=== PATIENT | male | born 1940 | race African-American/Black ===

== ENCOUNTER → 2016-08-22 | Outpatient (CLI) | payer MEDICARE ==
[2016-08-22 14:20] LABS: ABSOLUTE EOSINOPHILS # (AUTO) 0.2 10^3/uL (0.0-0.6); ABSOLUTE LYMPHOCYTES (AUTO) 1.7 10^3/uL (0.5-4.7); ABSOLUTE MONOCYTES (AUTO) 0.4 10^3/uL (0.1-1.4); ABSOLUTE NEUT (AUTO) 4.2 10^3/uL (1.7-8.2); BASOPHILS % (AUTO) 0.7 % (0-2); EOSINOPHILS % (AUTO) 3.3 % (0-6); HEMATOCRIT 38.1 % (37.9-51.0); HEMOGLOBIN 12.8 g/dL (13.5-17.0); HGB HCT DIFFERENCE 0.3; LYMPHOCYTES % (AUTO) 25.9 % (13-45); MEAN CORPUSCULAR HEMOGLOBIN 27.8 pg (27.0-33.4); MEAN CORPUSCULAR HGB CONC 33.7 g/dL (32.0-36.0); MEAN CORPUSCULAR VOLUME 83 fl (80-97); MONOCYTES % (AUTO) 5.7 % (3-13); RED BLOOD COUNT 4.61 10^6/uL (4.35-5.55); RED CELL DISTRIBUTION WIDTH 13.9 % (11.5-14.0); SEGMENTED NEUTROPHILS % (AUTO) 64.4 % (42-78); WHITE BLOOD COUNT 6.5 10^3/uL (4.0-10.5)
== END ==
LOC: OD 13:01
PROVIDERS: ATTEND Urology
DX: E13.9 Other specified diabetes mellitus without complications (principal); N40.1 Benign prostatic hyperplasia with lower urinary tract symptoms; I10 Essential (primary) hypertension; C61 Malignant neoplasm of prostate
CPT/HCPCS: 36415; 83036; 84153; 85025

== ENCOUNTER → 2016-11-24 | Outpatient (CLI) | payer MEDICARE ==
[2016-11-24 17:23] LABS: ABSOLUTE BASOPHILS # (AUTO) 0.1 10^3/uL (0.0-0.2); ABSOLUTE EOSINOPHILS # (AUTO) 0.2 10^3/uL (0.0-0.6); ABSOLUTE LYMPHOCYTES (AUTO) 1.7 10^3/uL (0.5-4.7); ABSOLUTE MONOCYTES (AUTO) 0.5 10^3/uL (0.1-1.4); ABSOLUTE NEUT (AUTO) 5.2 10^3/uL (1.7-8.2); BASOPHILS % (AUTO) 0.9 % (0-2); HEMATOCRIT 41.6 % (37.9-51.0); HEMOGLOBIN 13.3 g/dL (13.5-17.0); HGB HCT DIFFERENCE -1.7; LYMPHOCYTES % (AUTO) 21.4 % (13-45); MEAN CORPUSCULAR HEMOGLOBIN 27.4 pg (27.0-33.4); MEAN CORPUSCULAR VOLUME 86 fl (80-97); MONOCYTES % (AUTO) 6.7 % (3-13); RED BLOOD COUNT 4.86 10^6/uL (4.35-5.55); RED CELL DISTRIBUTION WIDTH 14.1 % (11.5-14.0); WHITE BLOOD COUNT 7.7 10^3/uL (4.0-10.5)
[2016-11-24 17:40] LABS: ALANINE AMINOTRANSFERASE 26 U/L (21-72); ALBUMIN 4.9 g/dL (3.5-5.0); ALKALINE PHOSPHATASE 79 U/L (38-126); ANION GAP 15 (5-19); ASPARTATE AMINO TRANSFERASE 21 U/L (17-59); BILIRUBIN,DIRECT 0.3 mg/dL (0.0-0.4); BILIRUBIN,TOTAL 0.7 mg/dL (0.2-1.3); BLOOD UREA NITROGEN 21 mg/dL (7-20); CALCIUM 9.8 mg/dL (8.4-10.2); CARBON DIOXIDE 25 mmol/L (22-30); CHLORIDE 98 mmol/L (98-107); CREATININE RESULT 1.08 mg/dL (0.52-1.25); GLUCOSE 89 mg/dL (75-110); POTASSIUM 4.9 mmol/L (3.6-5.0); SODIUM 137.6 mmol/L (137-145); URIC ACID 6.5 mg/dL (3.5-8.5)
== END ==
LOC: OD 15:11
PROVIDERS: ATTEND Urology
DX: N40.1 Benign prostatic hyperplasia with lower urinary tract symptoms (principal); I10 Essential (primary) hypertension; E13.9 Other specified diabetes mellitus without complications
CPT/HCPCS: 36415; 80053; 84550; 85025

== ENCOUNTER → 2016-12-03 | Outpatient (CLI) | payer MEDICARE ==
[2016-12-03 11:12] LABS: URINE PROTEIN 11.4 mg/dL (<12)
[2016-12-03 11:15] LABS: CREATININE 0.95 mg/dL (0.52-1.25)
[2016-12-03 11:18] LABS: URINE CREATININE 53.9 mg/dL (22-328)
== END ==
LOC: OD 09:37
PROVIDERS: ATTEND Urology
DX: N40.1 Benign prostatic hyperplasia with lower urinary tract symptoms (principal); E13.9 Other specified diabetes mellitus without complications; R80.9 Proteinuria, unspecified
CPT/HCPCS: 82575; 84156

== ENCOUNTER → 2017-01-05 | Outpatient (CLI) | payer MEDICARE ==
[2017-01-05 10:40] LABS: HEMATOCRIT 38.9 % (37.9-51.0); HEMOGLOBIN 12.9 g/dL (13.5-17.0); HGB HCT DIFFERENCE -0.2; MEAN CORPUSCULAR HEMOGLOBIN 27.9 pg (27.0-33.4); MEAN CORPUSCULAR HGB CONC 33.2 g/dL (32.0-36.0); MEAN CORPUSCULAR VOLUME 84 fl (80-97); RED BLOOD COUNT 4.62 10^6/uL (4.35-5.55); RED CELL DISTRIBUTION WIDTH 13.4 % (11.5-14.0); WHITE BLOOD COUNT 7.1 10^3/uL (4.0-10.5)
[2017-01-05 11:06] LABS: APPEARANCE,URINE CLEAR; BILIRUBIN,URINE NEGATIVE (NEGATIVE); GLUCOSE, URINE NEGATIVE (NEGATIVE); KETONES,URINE NEGATIVE (NEGATIVE); LEUKOCYTE ESTERASE,URINE NEGATIVE (NEGATIVE); NITRITE,URINE NEGATIVE (NEGATIVE); PROTEIN,URINE NEGATIVE (NEGATIVE); URINE SPECIFIC GRAVITY 1.015; UROBILINOGEN,URINE NEGATIVE mg/dL (<2.0)
[2017-01-05 11:11] LABS: ANION GAP 12 (5-19); BLOOD UREA NITROGEN 15 mg/dL (7-20); CALCIUM 9.8 mg/dL (8.4-10.2); CARBON DIOXIDE 27 mmol/L (22-30); CHLORIDE 100 mmol/L (98-107); CREATININE RESULT 1.02 mg/dL (0.52-1.25); GLUCOSE 86 mg/dL (75-110); POTASSIUM 5.3 mmol/L (3.6-5.0); SODIUM 139.2 mmol/L (137-145)
[2017-01-05 11:22] LABS: URINE CREATININE 144.5 mg/dL (22-328); URINE PROTEIN 9.4 mg/dL (<12)
== END ==
LOC: OD 09:31
PROVIDERS: ATTEND Physician Assistant Medical
DX: E11.9 Type 2 diabetes mellitus without complications (principal); I10 Essential (primary) hypertension; R80.9 Proteinuria, unspecified
CPT/HCPCS: 36415; 80048; 81001; 82570; 84156; 85027

== ENCOUNTER → 2017-02-10 | Outpatient (CLI) | payer MEDICARE ==
[2017-02-10 11:31] LABS: HEMATOCRIT 38.8 % (37.9-51.0); HEMOGLOBIN 12.9 g/dL (13.5-17.0); HGB HCT DIFFERENCE -0.1; MEAN CORPUSCULAR HEMOGLOBIN 28.1 pg (27.0-33.4); MEAN CORPUSCULAR HGB CONC 33.2 g/dL (32.0-36.0); MEAN CORPUSCULAR VOLUME 85 fl (80-97); RED BLOOD COUNT 4.58 10^6/uL (4.35-5.55); RED CELL DISTRIBUTION WIDTH 13.6 % (11.5-14.0); WHITE BLOOD COUNT 6.7 10^3/uL (4.0-10.5)
[2017-02-10 11:42] LABS: ANION GAP 14 (5-19); BLOOD UREA NITROGEN 21 mg/dL (7-20); CALCIUM 10.2 mg/dL (8.4-10.2); CARBON DIOXIDE 26 mmol/L (22-30); CHLORIDE 98 mmol/L (98-107); CREATININE RESULT 1.07 mg/dL (0.52-1.25); GLUCOSE 88 mg/dL (75-110); POTASSIUM 5.4 mmol/L (3.6-5.0); SODIUM 138.4 mmol/L (137-145)
[2017-02-10 11:44] LABS: APPEARANCE,URINE CLEAR; BILIRUBIN,URINE NEGATIVE (NEGATIVE); GLUCOSE, URINE NEGATIVE (NEGATIVE); KETONES,URINE NEGATIVE (NEGATIVE); LEUKOCYTE ESTERASE,URINE NEGATIVE (NEGATIVE); NITRITE,URINE NEGATIVE (NEGATIVE); PROTEIN,URINE NEGATIVE (NEGATIVE); URINE SPECIFIC GRAVITY 1.015; UROBILINOGEN,URINE NEGATIVE mg/dL (<2.0)
== END ==
LOC: OD 10:15
PROVIDERS: ATTEND Physician Assistant Medical
DX: R80.9 Proteinuria, unspecified (principal); E11.9 Type 2 diabetes mellitus without complications; D64.9 Anemia, unspecified; I10 Essential (primary) hypertension
CPT/HCPCS: 36415; 80048; 81001; 82570; 84156; 85027

== ENCOUNTER → 2017-02-16 | Outpatient (CLI) | payer MEDICARE | LOC: OD 11:00 | PROVIDERS: ATTEND Internal Medicine Nephrology | DX: E87.5 Hyperkalemia (principal) | CPT/HCPCS: 36415; 84132 ==

== ENCOUNTER → 2017-03-02 | Outpatient (CLI) | payer MEDICARE ==
[2017-03-02 09:35] LABS: ALANINE AMINOTRANSFERASE 32 U/L (21-72); ALBUMIN 4.4 g/dL (3.5-5.0); ALKALINE PHOSPHATASE 75 U/L (38-126); ASPARTATE AMINO TRANSFERASE 18 U/L (17-59); BILIRUBIN,DIRECT 0.4 mg/dL (0.0-0.4); BILIRUBIN,TOTAL 0.5 mg/dL (0.2-1.3); CHOLESTEROL 160.14 mg/dL (0-200); Direct HDL 54 mg/dL (>40); TOTAL PROTEIN 6.7 g/dL (6.3-8.2); TRIGLYCERIDES 124 mg/dL (<150)
[2017-03-02 09:46] LABS: DIRECT LDL 71 mg/dL (<100)
== END ==
LOC: OD 08:04
PROVIDERS: ATTEND Internal Medicine
DX: I10 Essential (primary) hypertension (principal); E78.4 Other hyperlipidemia; Z79.899 Other long term (current) drug therapy; M15.9 Polyosteoarthritis, unspecified
CPT/HCPCS: 36415; 80061; 80076

== ENCOUNTER → 2017-05-17 | Outpatient (CLI) | payer MEDICARE ==
[2017-05-17 11:02] LABS: APPEARANCE,URINE CLEAR; BILIRUBIN,URINE NEGATIVE (NEGATIVE); GLUCOSE, URINE NEGATIVE (NEGATIVE); KETONES,URINE NEGATIVE (NEGATIVE); LEUKOCYTE ESTERASE,URINE NEGATIVE (NEGATIVE); NITRITE,URINE NEGATIVE (NEGATIVE); PROTEIN,URINE NEGATIVE (NEGATIVE); URINE SPECIFIC GRAVITY 1.011; UROBILINOGEN,URINE NEGATIVE mg/dL (<2.0)
[2017-05-17 11:06] LABS: HEMATOCRIT 40.2 % (37.9-51.0); HEMOGLOBIN 13.6 g/dL (13.5-17.0); HGB HCT DIFFERENCE 0.6; MEAN CORPUSCULAR HEMOGLOBIN 28.5 pg (27.0-33.4); MEAN CORPUSCULAR HGB CONC 33.8 g/dL (32.0-36.0); MEAN CORPUSCULAR VOLUME 85 fl (80-97); RED BLOOD COUNT 4.76 10^6/uL (4.35-5.55); RED CELL DISTRIBUTION WIDTH 13.9 % (11.5-14.0); WHITE BLOOD COUNT 6.2 10^3/uL (4.0-10.5)
[2017-05-17 11:18] LABS: URINE CREATININE 74.7 mg/dL (22-328); URINE PROTEIN 8.7 mg/dL (<12)
[2017-05-17 11:25] LABS: ANION GAP 14 (5-19); BLOOD UREA NITROGEN 23 mg/dL (7-20); CALCIUM 10.4 mg/dL (8.4-10.2); CARBON DIOXIDE 27 mmol/L (22-30); CHLORIDE 100 mmol/L (98-107); CREATININE RESULT 1.03 mg/dL (0.52-1.25); GLUCOSE 88 mg/dL (75-110); SODIUM 141.1 mmol/L (137-145)
== END ==
LOC: OD 09:33
PROVIDERS: ATTEND Physician Assistant Medical
DX: R80.9 Proteinuria, unspecified (principal); E11.9 Type 2 diabetes mellitus without complications; D64.9 Anemia, unspecified; I10 Essential (primary) hypertension
CPT/HCPCS: 36415; 80048; 81001; 82570; 84156; 85027

== ENCOUNTER → 2018-03-21 | Outpatient (CLI) | payer MEDICARE ==
[2018-03-21 09:29] LABS: CHOLESTEROL 186.71 mg/dL (0-200); TRIGLYCERIDES 82 mg/dL (<150)
[2018-03-21 09:40] LABS: DIRECT LDL 110 mg/dL (<100)
== END ==
LOC: OD 07:58
PROVIDERS: ATTEND Internal Medicine
DX: E78.49 Other hyperlipidemia (principal); I10 Essential (primary) hypertension; I34.0 Nonrheumatic mitral (valve) insufficiency; I36.1 Nonrheumatic tricuspid (valve) insufficiency; M15.9 Polyosteoarthritis, unspecified; Z79.899 Other long term (current) drug therapy
CPT/HCPCS: 36415; 80061

== ENCOUNTER → 2020-01-03 | Outpatient (CLI) | payer MEDICARE ==
[2020-01-03 13:07] VITALS: BP 103/62
--- NOTE | 2020-01-03 13:07 | ER RDC ASSESSMENT REPORT ---
Intake - In the Last 14 days Have you traveled outside [place]?: No Have you been in close contact with someone CONFIRMED: Yes Worked in Healthcare?: No - Symptoms Subjective Fever([place] feverish): No Chills: No Muscule Aches: No Runny Nose: No Sore Throat: No Cough (New or worsening chronic cough): No Shortness of breath: No Nausea or Vomiting: No Headache: No Abdominal Pain: No Diarrhea(3 or more loose stools in last 24 hours): No - Do you have any of the following Chronic lung disease: Asthma or emphysema or COPD: No Cystic Fibrosis: No Diabetes: Yes High Blood Pressure: Yes Cardiovascular Disease: Yes Chronic Kidney Disease: No Chronic Liver Disease: No Chronic blood disorder like Sickle Cell Disease: No Weak immune system due to disease or medication: No Neurologic condition that limits movement: No Developmental delay - Moderate to Severe: No Recent (within past 2 weeks) or current : No Morbid Obesity (>100 pounds over ideal weight): No Obesity Comment: Height 6 feet weight 265 pounds Other Comment: Patient has a history of prostate cancer. - Objective Temperature: 97.5 F Pulse Rate: 90 Respiratory Rate: 18 Blood Pressure: 103/62 O2 Sat by Pulse Oximetry: 95 Objective: Given above, testing performed: If Testing Performed: Test Specimen Type Sent to General - General Information source: Patient Notes: Patient here at [facility] for COVID testing. Patient reports went and traveled to [place] to visit family most the family has now tested positive is currently in the hospital and is positive for COVID patient reports is asymptomatic at this time. - Related Data Allergies/Adverse Reactions: No Known Allergies Allergy (Verified 04/07/14 22:04) Past Medical History - General Information source: Patient - Social History Smoking Status: Never Smoker Family History: None - Past Medical History Cardiac Medical History: Reports: Hx Hypertension Endocrine Medical History: Reports: Hx Diabetes Mellitus Type 2 Renal/ Medical History: Denies: Hx Peritoneal Dialysis Past Surgical History: Reports: Hx Orthopedic Surgery - right hip Physical Exam - General General appearance: Appears well, Alert In distress: None Notes: PHYSICAL EXAMINATION: GENERAL: Well-appearing and in no acute distress. HEAD: Atraumatic, normocephalic. EYES: sclera anicteric, conjunctiva are normal. ENT: nares patent. Moist mucous membranes. NECK: Normal range of motion, supple without lymphadenopathy LUNGS: CTAB and equal. No wheezes rales or rhonchi. Resp even and unlabored. Lung sounds clear. HEART: Regular rate and rhythm without murmurs ABDOMEN: Soft, nontender, normal bowel sounds, no guarding. EXTREMITIES: No cyanosis. NEUROLOGICAL: Normal speech. PSYCH: Normal mood, normal affect. SKIN: Warm, Dry, normal turgor, Diagnostic Results Laboratory Results: Pending cover testing results. Patient provided instructions regarding code to include: As a person under investigation for Covid 19, the [facility], division of public health advises you to adhere to the following guidance until your test results are reported to you. If your test result is positive, you will receive additional information from your provider and your local health department at that time. Remain at home until you are cleared by the health provider or public health authorities. Keep a log of visitors to your home, notify any visitors to your home of your isolation status. If you plan to move to a new address or leave the [facility], notify the local health department in your County. Call your doctor or seek care if you have an urgent medical need. Before seeking medical care, call ahead to get instructions from the provider before arriving at the medical office clinic or hospital. Notify them that you are being tested for the virus that causes Covid 19 so that arrangements can be made, as necessary, to prevent transmission to others in the healthcare setting. Next, notify the local health department in your county. If a medical emergency arises and you need to call 911, inform the first responders that you are being tested for the virus that causes Covid 19. Next, notify the local health department in your county. Patient Education/Counseling Counseling/Education: Patient presents with upper respiratory symptoms worrisome for possible Covid 19. Patient does not have emergency worring symptoms such as difficulty breathing, shortness of breath, chest pain, pressure, confusion or cyanosis. Patient appears suitable for discharge. Instructed to follow-up with PCP today Dr. Anibal Valles. To ED for any changing conditions or worsening patient's vital signs are stable and patient is nontoxic in appearance. Good return precautions have been discussed with patient, patient verbalized understanding and is agreeable with discharge plan of care at this time. RDC Discharge - Discharge Clinical Impression: Encounter for screening laboratory testing for COVID-19 virus in asymptomatic patient Condition: Stable Disposition: Home; Selfcare
== END ==
LOC: RDC 12:23
PROVIDERS: ATTEND Nurse Practitioner Family
DX: U07.1 COVID-19 (principal); I10 Essential (primary) hypertension; E11.9 Type 2 diabetes mellitus without complications; Z85.46 Personal history of malignant neoplasm of prostate
CPT/HCPCS: 99201; U0003; G0463; C9803; 87635; 99211

== ENCOUNTER 2020-01-05 03:40 | Emergency (ER) | payer MEDICARE ==
--- NOTE | 2020-01-05 07:47 | RADIOLOGY REPORT (SQ) ---
CLINICAL HISTORY: cough, dyspnea COMPARISON: 04/07/2014. TECHNIQUE: XR CHEST 1 VIEW 01/05/2020 7:16 AM CDT FINDINGS: Cardiac silhouette is normal in size. Lungs are clear without consolidation, atelectasis, mass or edema. There is no pleural effusion. There is no pneumothorax. There are no acute osseous findings. IMPRESSION: Clear lungs.
--- NOTE | 2020-01-05 08:33 | EKG REPORT ---
SEVERITY:- ABNORMAL ECG - SINUS RHYTHM NONSPECIFIC IVCD WITH LAD : Confirmed by: Rudy Ocampo MD 05-Jan-2020 08:32:37
[2020-01-05 08:35] VITALS: BP 134/82
[2020-01-05 08:37] LABS: ABSOLUTE LYMPHOCYTES (AUTO) 0.7 10^3/uL (0.5-4.7); ABSOLUTE MONOCYTES (AUTO) 0.3 10^3/uL (0.1-1.4); ABSOLUTE NEUT (AUTO) 3.6 10^3/uL (1.7-8.2); BASOPHILS % (AUTO) 0.3 % (0-2); EOSINOPHILS % (AUTO) 0.1 % (0-6); HEMATOCRIT 34.6 % (37.9-51.0); HEMOGLOBIN 11.4 g/dL (13.5-17.0); LYMPHOCYTES % (AUTO) 14.6 % (13-45); MEAN CORPUSCULAR HEMOGLOBIN 27.8 pg (27.0-33.4); MEAN CORPUSCULAR HGB CONC 32.8 g/dL (32.0-36.0); MEAN CORPUSCULAR VOLUME 85 fl (80-97); MONOCYTES % (AUTO) 6.9 % (3-13); PLATELET COUNT 275 10^3/uL (150-450); RED BLOOD COUNT 4.09 10^6/uL (4.35-5.55); RED CELL DISTRIBUTION WIDTH 13.7 % (11.5-14.0); SEGMENTED NEUTROPHILS % (AUTO) 78.1 % (42-78); TOTAL CELLS COUNTED % (AUTO) 100 %; WHITE BLOOD COUNT 4.7 10^3/uL (4.0-10.5)
[2020-01-05 08:53] LABS: A TYPE INFLUENZA AG NEGATIVE (NEGATIVE); B INFLUENZA AG NEGATIVE (NEGATIVE)
[2020-01-05 08:55] LABS: ALBUMIN 4.1 g/dL (3.5-5.0); ALKALINE PHOSPHATASE 71 U/L (38-126); ANION GAP 7 (5-19); ASPARTATE AMINO TRANSFERASE 78 U/L (17-59); BILIRUBIN,TOTAL 0.3 mg/dL (0.2-1.3); BLOOD UREA NITROGEN 18 mg/dL (7-20); CALCIUM 8.4 mg/dL (8.4-10.2); CARBON DIOXIDE 24 mmol/L (22-30); CHLORIDE 101 mmol/L (98-107); GLUCOSE 126 mg/dL (75-110); POTASSIUM 4.9 mmol/L (3.6-5.0)
[2020-01-05] MEDS ORDERED: ONDANSETRON HCL INJ/PF 4 MG/2 ML SDV IV ONE (09:55)
--- NOTE | 2020-01-05 10:29 | ER Document Report ---
ED General - General Chief Complaint: Shortness Of Breath Stated Complaint: SHORTNESS OF BREATH,NAUSEA Time Seen by Provider: 01/05/20 07:11 TRAVEL OUTSIDE OF THE [place] IN LAST 30 DAYS: No - HPI Notes: Chief complaint: Nausea and COVID exposure History of present illness: 79-year-old male with history of hypertension and diabetes mellitus type 2 was exposed to multiple members of 's extended family who have been diagnosed with COVID-19 virus. 1 of the family members has actually recently with a virus. Patient has had a COVID swab taken for himself 2 days ago but results remain pending. He developed some nausea without vomiting today and decided he should come in to be checked in emergency department. He specifically denies any cough, chest pain, shortness of breath, fever, skin rashes or changes in sense of taste or smell. - Related Data Allergies/Adverse Reactions: No Known Allergies Allergy (Verified 01/05/20 06:57) Past Medical History - General Information source: Patient - Social History Smoking Status: Never Smoker Frequency of alcohol use: Rare Drug Abuse: None Lives with: Family Family History: None Patient has homicidal ideation: No - Past Medical History Cardiac Medical History: Reports: Hx Hypertension Endocrine Medical History: Reports: Hx Diabetes Mellitus Type 2 Renal/ Medical History: Denies: Hx Peritoneal Dialysis Past Surgical History: Reports: Hx Orthopedic Surgery - right hip Review of Systems - Review of Systems Notes: Constitutional: Negative for fever. HENT: Negative for sore throat. Eyes: Negative for visual changes. Cardiovascular: Negative for chest pain. Respiratory: Negative for shortness of breath. Gastrointestinal: Nausea without vomiting negative for abdominal pain or diarrhea. Genitourinary: Negative for dysuria. Musculoskeletal: Negative for back pain. Skin: Negative for rash. Neurological: Negative for headaches, weakness or numbness. 10 point ROS negative except as marked above and in HPI. Physical Exam - Vital signs Vitals: Temp Pulse Resp BP Pulse Ox 99.1 F 80 20 156/82 H 97 01/05/20 04:44 01/05/20 04:44 01/05/20 04:44 01/05/20 04:44 01/05/20 04:44 Course - Re-evaluation Re-evalutation: 01/05/20 10:41 This man has an unremarkable evaluation here. His COVID test result is still unknown. His chest x-ray is normal. His vital signs are stable. His oxygenation is normal. Influenza swab is negative. He is no longer feeling nauseated. I am going to send him home with routine aftercare instructions and will give him a prescription for some Zofran as needed. He needs to remain on self- isolation until we know the results of his COVID testing. He understands that he may return here as needed for new or worsening symptoms. Findings, clinical impression and plan of treatment have been discussed with patient/family. Understanding of current findings and recommendations has been acknowledged by them and there is agreement regarding disposition and follow-up. - Vital Signs Vital signs: Temp Pulse Resp BP Pulse Ox 99.4 F 80 20 134/82 H 99 01/05/20 08:35 01/05/20 04:44 01/05/20 08:01 01/05/20 08:00 01/05/20 08:01 - Laboratory Result Diagrams: 01/05/20 08:20 01/05/20 08:20 Laboratory results interpreted by me: 01/05/20 01/05/20 08:20 08:20 RBC 4.09 L Hgb 11.4 L Hct 34.6 L Seg Neutrophils % 78.1 H Sodium 132.0 L Glucose 126 H AST 78 H ALT 67 H Discharge - Discharge Clinical Impression: Nausea, Suspected COVID-19 virus infection Condition: Stable Disposition: HOME, SELF-CARE Additional Instructions: Increase oral fluids. Take prescribed medication as needed. Return here as needed for new or worsening symptoms. You should remain on self-isolation at home until the results of your COVID swab are reported to you. Continue your current medications. Follow-up with your primary care doctor as needed. Prescriptions: Ondansetron [Zofran Odt 4 mg Tablet] 1 - 2 tab PO Q4H PRN #15 tab.rapdis PRN Reason: For Nausea/Vomiting
== END 2020-01-05 11:42 | disposition home or self-care (01) ==
LOC: ER 03:40
DX: R11.0 Nausea (principal); R06.02 Shortness of breath; I10 Essential (primary) hypertension; E11.9 Type 2 diabetes mellitus without complications; Z20.828 Contact with and (suspected) exposure to other viral communicable diseases
CPT/HCPCS: 36415; 71045; 80053; 84484; 85025; 87804; 93005; 93010; 99284

== ENCOUNTER → 2020-03-04 | Outpatient (CLI) | payer MEDICARE ==
--- NOTE | 2020-03-04 16:23 | RADIOLOGY REPORT (SQ) ---
EXAM DESCRIPTION: VENOUS BILATERAL LOWER IMAGES COMPLETED DATE/TIME: 03/04/2020 3:18 pm REASON FOR STUDY: EDEMA R60.0 LOCALIZED EDEMA COMPARISON: None. TECHNIQUE: Dynamic and static shanks scale and color images acquired of both lower extremity venous sy stems. Selected spectral images acquired with additional compression and augmentation maneuvers. Imag es stored on PACS. LIMITATIONS: None. FINDINGS: RIGHT LEG COMMON FEMORAL AND FEMORAL: Normal phasicity, compression and augmentation. No visualized echogenic m aterial on shanks scale. No defects on color images. POPLITEAL: Normal compression and augmentation. No visualized echogenic material on shanks scale. No de fects on color images. CALF VESSELS: Normal compression and augmentation. No visualized echogenic material on shanks scale. No defects on color image. GSV AND SSV: Normal compression. No visualized echogenic material on shanks scale. No defects on color images. ANY DEEP VENOUS INSUFFICIENCY: Not evaluated. ANY EVIDENCE OF POPLITEAL CYST: No. OTHER: No other significant finding. LEFT LEG COMMON FEMORAL AND FEMORAL: Normal phasicity, compression and augmentation. No visualized echogenic m aterial on shanks scale. No defects on color images. POPLITEAL: Normal compression and augmentation. No visualized echogenic material on shanks scale. No de fects on color images. CALF VESSELS: Normal compression and augmentation. No visualized echogenic material on shanks scale. No defects on color images. GSV AND SSV: Normal compression. No visualized echogenic material on shanks scale. No defects on color images. ANY DEEP VENOUS INSUFFICIENCY: Not evaluated. ANY EVIDENCE POPLITEAL CYST: No. OTHER: No other significant finding. IMPRESSION: NO EVIDENCE DVT OR SVT IN EITHER LEG. TECHNICAL DOCUMENTATION: JOB ID: [id number] 2010 [employer]- All Rights Reserved Reading location - IP/workstation name: [email or web address]
== END ==
LOC: SP 11:23
PROVIDERS: ATTEND Family Medicine
DX: R60.0 Localized edema (principal)
CPT/HCPCS: 93970

== ENCOUNTER 2020-03-22 17:42 | Emergency (ER) | payer MEDICARE ==
[2020-03-22 18:02] VITALS: BP 148/59
[2020-03-22] MEDS ORDERED: NORMAL SALINE 1000 ML 1,000 ML IV ONE (18:48)
--- NOTE | 2020-03-22 19:30 | RADIOLOGY REPORT (SQ) ---
EXAM DESCRIPTION: ACUTE ABDOMEN SERIES IMAGES COMPLETED DATE/TIME: 03/22/2020 7:14 pm REASON FOR STUDY: n/v/d COMPARISON: Chest radiograph 01/05/2020 NUMBER OF VIEWS: Four views. TECHNIQUE: Frontal chest, supine abdomen and upright abdomen radiographic images acquired. LIMITATIONS: None. FINDINGS: CHEST: Lungs clear of infiltrates. Heart size normal without failure. No hilar or mediast inal masses. FREE AIR: None. No abnormal gas collections. BOWEL GAS PATTERN: Nonobstructive pattern. No dilated loops or air fluid levels. CALCIFICATIONS: No suspicious calcifications. HARDWARE: None in the abdomen. SOFT TISSUES: No gross mass or suggestion of organomegaly. BONES: No acute fracture. No worrisome bone lesions. Right hip prosthesis is noted. OTHER: No other significant finding. IMPRESSION: No acute pulmonary process. Nonobstructive bowel gas pattern. TECHNICAL DOCUMENTATION: JOB ID: [id number] 2010 [email or web address]- All Rights Reserved Reading location - IP/workstation name: [email or web address]
--- NOTE | 2020-03-22 20:12 | ER Document Report ---
Entered by CAROLINA WOOTEN SCRIBE 03/22/20 1846 Acting as scribe for:BROOKE SILVEIRA MD ED GI/ - General Chief Complaint: Nausea/Vomiting/Diarrhea Stated Complaint: NAUSEA,VOMITING,DIARRHEA Time Seen by Provider: 03/22/20 18:11 Primary Care Provider: RENETTA FRANCIS MD [Primary Care Provider] - Follow up as needed Information source: Patient Notes: This 79 year old male patient presents to the emergency department today with complaints of a five day history of nausea, vomiting, and diarrhea along with an associated headache. Patient reports he and his had covid months ago and she was recently just released from ICU after being intubated for quite some time. He reports he gets dizzy with head movement. He denies any fevers, chills, blood in vomit/diarrhea, feeling bloated, change in taste or smell, sore throat, or cough. TRAVEL OUTSIDE OF THE [place] IN LAST 30 DAYS: No - Related Data Allergies/Adverse Reactions: No Known Allergies Allergy (Verified 03/22/20 17:56) Home Medications: metformin Past Medical History - General Information source: Patient - Social History Smoking Status: Never Smoker Cigarette use (# per day): No Frequency of alcohol use: None Drug Abuse: None Lives with: Family Family History: None Patient has homicidal ideation: No - Past Medical History Cardiac Medical History: Reports: Hx Hypertension Endocrine Medical History: Reports: Hx Diabetes Mellitus Type 2 Past Surgical History: Reports: Hx Orthopedic Surgery - right hip Review of Systems - Review of Systems Constitutional: No symptoms reported EENT: No symptoms reported Cardiovascular: No symptoms reported Respiratory: No symptoms reported Gastrointestinal: See HPI, Diarrhea, Nausea, Vomiting. denies: Abdominal pain Genitourinary: No symptoms reported Male Genitourinary: No symptoms reported Musculoskeletal: No symptoms reported Skin: No symptoms reported Hematologic/Lymphatic: No symptoms reported Neurological/Psychological: See HPI, Headaches -: Yes All other systems reviewed and negative Physical Exam - Vital signs Vitals: Temp Pulse Resp BP Pulse Ox 98.8 F 67 22 H 148/59 H 100 03/22/20 17:53 03/22/20 17:53 03/22/20 17:53 03/22/20 17:53 03/22/20 17:53 - Notes Notes: Physical Exam: General: Alert, appears well. HEENT: Normocephalic. Atraumatic. PERRL. Extraocular movements intact. No posterior oropharynx erythema or exudate, airway is patent. Serous effusion behind TMs bilaterally. Neck: Supple. Non-tender. Respiratory: No respiratory distress. Clear and equal breath sounds bilaterally. Cardiovascular: Regular rate and rhythm. Abdominal: Normal Inspection. Non-tender. No distension. Normal Bowel Sounds. Back: No gross abnormalities. Extremities: Moves all four extremities. Upper extremities: Normal inspection. Normal ROM. Lower extremities: Normal inspection. No edema. Normal ROM. Neurological: Normal cognition. AAOx4. Normal speech. Psychological: Normal affect. Normal Mood. Skin: Warm. Dry. Normal color. Course - Re-evaluation Re-evalutation: 03/22/20 19:56 Patient states he feels better now that he is receiving IV fluids patient also reports that his nausea has not improved as well. He has been no diarrhea since has been in the department. Unfortunately patient's labs blood draw was somehow incorrectly put into the lab under different name by the laboratory worker. Therefore the blood draw had to be repeated. Patient states that he is not interested in having blood drawn again because it was difficult in the first place. Patient also states he is ready to go home inasmuch as he is feeling better and has Covid test has been done so already at this point in time. X-ray shows no acute process of his abdomen and chest. And urine appears clear so he is not showing any concentrated urine at this time. Plan is to place patient on Zofran for nausea and omeprazole for dyspepsia. I explained the patient diarrhea may be a friend and inasmuch as he is getting rid of what ever is causing his diarrhea may be viral in nature. Patient states he understands and will follow up with his primary care physician. - Vital Signs Vital signs: Temp Pulse Resp BP Pulse Ox 98.8 F 67 22 H 148/59 H 100 03/22/20 17:53 03/22/20 17:53 03/22/20 17:53 03/22/20 17:53 03/22/20 17:53 03/22/20 20:09 Vital signs stable. - Diagnostic Test Radiology reviewed: Image reviewed, Reports reviewed Radiology results interpreted by me: 03/22/20 20:09 Acute Abdomen Series 03/22/20 18:46 IMPRESSION: No acute pulmonary process. Nonobstructive bowel gas pattern. Acute abdominal series shows no acute pulmonary process as well as nonobstructive bowel gas pattern. No acute process. Discharge - Discharge Clinical Impression: Suspected COVID-19 virus infection, Nausea vomiting and diarrhea Condition: Stable Disposition: HOME, SELF-CARE Instructions: COVID-19 Guidance for Persons Under Investigation, Antinausea Medication ([facility]), Diarrhea, Nonspecific ([facility]), Viral Syndrome ([facility]) Prescriptions: Omeprazole 40 mg PO DAILY #30 capsule. Ondansetron [Zofran Odt 4 mg Tablet] 1 - 2 tab PO Q6H PRN #20 tab.rapdis PRN Reason: Referrals: RENETTA FRANCIS MD [Primary Care Provider] - Follow up as needed I personally performed the services described in the documentation, reviewed and edited the documentation which was dictated to the scribe in my presence, and it accurately records my words and actions.
[2020-03-22 20:17] LABS: APPEARANCE,URINE CLEAR; BILIRUBIN,URINE NEGATIVE (NEGATIVE); COLOR,URINE YELLOW; GLUCOSE, URINE NEGATIVE (NEGATIVE); KETONES,URINE NEGATIVE (NEGATIVE); LEUKOCYTE ESTERASE,URINE NEGATIVE (NEGATIVE); NITRITE,URINE NEGATIVE (NEGATIVE); PROTEIN,URINE NEGATIVE (NEGATIVE); URINE SPECIFIC GRAVITY 1.012; UROBILINOGEN,URINE NEGATIVE mg/dL (<2.0)
== END 2020-03-22 20:48 | disposition home or self-care (01) ==
LOC: ER 17:42
DX: R11.2 Nausea with vomiting, unspecified (principal); R19.7 Diarrhea, unspecified; R51.9 Headache, unspecified; Z20.828 Contact with and (suspected) exposure to other viral communicable diseases; I10 Essential (primary) hypertension; E11.9 Type 2 diabetes mellitus without complications; Z79.84 Long term (current) use of oral hypoglycemic drugs
CPT/HCPCS: 99285; 96360; 96361; 81001; 74022; U0003; J7030; C9803; 87635